=== PATIENT | female | born 1975 | race Caucasian/White ===

== ENCOUNTER → 2020-10-09 02:02 | Outpatient (CLI) | payer OTHER, SELFPAY ==
[2020-10-10 14:52] LABS: SARS-CoV-2 RNA PCR Negative
== END ==
PROVIDERS: PCP Family Medicine; Visit Provider Obstetrics & Gynecology Gynecologic Oncology
DX: Z01.812 Encounter for preprocedural laboratory examination (principal); Z20.822 Contact with and (suspected) exposure to COVID-19
CPT/HCPCS: C9803; U0003; U0005

== ENCOUNTER 2020-10-09 08:00 | Outpatient (CLI) | payer OTHER, SELFPAY ==
[2020-10-09 08:50] LABS: Hematocrit 45.2 % (37.0-47.0); Hemoglobin 14.5 g/dL (12.0-15.0); Mean Corpuscular HGB Conc 32.1 g/dl (32-36); Mean Corpuscular Hemoglobin 28.9 pg (26-34); Mean Corpuscular Volume 90.2 fl (80-100); Mean Platelet Volume 9.8 fl (7.4-10.4); Platelet Count Result 241 k/mm3 (150-375); Red Blood Count 5.01 M/mm3 (4.2-5.4); Red Cell Distribution Width 12.5 % (11.5-14.5); White Blood Count 8.5 K/mm3 (4.5-10.0)
== END 2020-10-09 08:01 | disposition home or self-care (01) ==
PROVIDERS: PCP Family Medicine; Visit Provider Obstetrics & Gynecology Gynecologic Oncology
DX: N83.209 Unspecified ovarian cyst, unspecified side (principal); Z01.818 Encounter for other preprocedural examination
CPT/HCPCS: 36415; 85027; 86850; 86900; 86901

== ENCOUNTER 2020-10-12 02:51 | Day surgery (SDC) | payer OTHER, SELFPAY ==
[2020-10-05 12:08] VITALS: BMI 42.0
[2020-10-12] VITALS (9 sets, daily range): BP systolic 98–148; BP diastolic 51–98; PULSE 64–92; RESP 15–20; TEMP 36.7; O2SAT 95–100
--- NOTE | 2020-10-12 07:13 | WPDANESEPPF ---
Anes - Initial Pre Proc Eval Procedure: Operation Date: 10/12/20 08:30 Proposed Procedures p Diagnostic Laparoscopy With Right Salpingectomy, Left Salpingo Oophorectomy - Glory Agustin DO Date/Time: 10/12/20 07:13 Surgeon: Glory Agustin DO Pre Op Diagnosis: Left ovarian cyst Patient Data Age: 45 Gender: F Height: 1.75 m Weight: 129.3 kg Allergies Allergy/AdvReac Type Severity Reaction Status Date / Time Penicillins Allergy Severe Fever Verified 10/05/20 12:04 Home Medications Medication Instructions Recorded Confirmed Type famotidine 20 mg PO BID 10/05/20 10/05/20 History levonorgestrel [Mirena] 1 device INTRAUTERINE ONCE 10/05/20 10/05/20 History levothyroxine 125 mcg PO DAILY 10/05/20 10/05/20 History ondansetron HCl 4 mg PO Q6H PRN 10/05/20 10/05/20 History sertraline 50 mg PO DAILY 10/05/20 10/05/20 History Patient hx anesthesia problems: post op nausea/vomiting Family hx anesthesia problems: none [facility] Past Medical History Medical History (Updated 10/11/20 @ 12:35 by Dav Hutchison DO) Anxiety Hypothyroidism IBS (irritable bowel syndrome) Migraine PONV (postoperative nausea and vomiting) Surgical History Surgical History (Updated 10/11/20 @ 12:35 by Dav Hutchison DO) History of History of laparoscopic cholecystectomy Social History Social History Years smoked: 3 Smoking status: Former smoker Smoking end date: 06/04/07 Alcohol intake: current Alcohol use details: 2/MONTH Substance use: never Substance use type: does not use Living arrangements: with family Spiritual care concerns: No Anes - Eval Final PreProcedure Day of Procedure 10/12/20 07:13 Patient weight: morbidly obese Heart: regular rate and rhythm Lungs: clear to auscultation and normal air movement Airway: Mallampati scale class III Neurological: alert and oriented Last oral intake: >/= 8 hours ASA classification: III Emergent: no Anesthetic plan: proceed Anesthesia type and monitoring: general ETT and standard monitoring Informed Consent: The patient's anesthetic plan and its attendant risks and benefits were discussed with the patient/family/POA. Questions were solicited and answers provided to the satisfaction of the patient/family/POA.
[2020-10-12] MEDS: ACETAMINOPHEN 500 MG TABLET 1000 MG PO (07:21)
[2020-10-12] MEDS: GABAPENTIN 300 MG CAPSULE PO (07:21)
[2020-10-12] MEDS: KETOROLAC 15 MG/ML VIAL (*BKC) IV PUSH (07:26)
[2020-10-12] MEDS: SCOPOLAMINE 1.5 MG PATCH TRANSDERM (07:28)
[2020-10-12] MEDS: LACTATED RINGERS 1,000 ML 30 ML IV CONT ×2 (07:45→09:51)
--- NOTE | 2020-10-12 08:04 | WPDHPUPDATE1 ---
History and Physical Update Update Date/Time: 10/12/20 08:04 History and Physical has been reviewed, including an updated exam of the patient. There are NO changes in the patient's condition. Risks, benefits, and alternatives have been discussed and questions answered. Patient agrees to proceed with procedure.
[2020-10-12] MEDS: BUPIVACAINE/EPINEPHRINE 0.25% 50 ML VIAL INFILTRATE (09:36)
[2020-10-12] MEDS: KETOROLAC 30 MG/ML VIAL (*BKC) IV PUSH (09:38)
--- NOTE | 2020-10-12 09:51 | PM.PROC ---
Procedure Note - Detailed Date of procedure: 10/12/20 Pre-op diagnosis: Left ovarian cyst Post-op diagnosis: same Procedure performed: Diagnostic laparoscopy, right salpingectomy, left salpingo-oophorectomy, peritoneal biopsy, pelvic washings Description of procedure: The patient was taken to the operating room she was placed under general anesthesia. She was prepped and draped in the normal sterile fashion in the dorsal lithotomy position. No preoperative antibiotics were indicated. A time-out was performed. A speculum was placed in the vagina and the cervix was visualized. The anterior lip of the cervix was grasped with a single-tooth tenaculum and cervix was sounded to 7 cm. The cervix was sequentially dilated up to accommodate a Kroner uterine manipulator. The manipulator was placed, the tenaculum was removed as was the speculum. The legs were lowered and gloves were changed. Attention was then turned to the abdomen. The skin underneath the umbilicus was grasped with penetrating towel clamps. The skin was elevated and injected with local. Incision was made with scalpel and a Veress needle was introduced, once a positive saline water drop test was performed CO2 insufflation was started and the abdomen was insufflated to 15 mmHg. The Veress needle was replaced with a 5 mm Optiview trocar. Survey of the abdomen revealed no evidence of bowel or vascular injury upon entry. The bowel was grossly normal. The patient was placed in steep Trendelenburg position and the pelvic organs were surveyed the uterus and tubes were unremarkable, as was the right ovary. The left ovary was dilated with a large cystic structure. There is a peritoneal implant on the right uterosacral ligament suspicious for endometriosis. Additional 5 mm ports were injected incised an additional Optiview trocars were introduced in the right and left lower quadrants. Uterus was then elevated and the right tube was dissected off using LigaSure. This was handed off through the dermatology physician assistant port. The uterus was then deviated to the right, a defect was made in the left peritoneal sidewall. The IP was isolated and the ureter was noted to be well out of the dissection field. The IP was then cauterized and transected using the LigaSure. The dissection was then carried up distal to the tube where the tube and ovary were then cauterized and transected off of the uterus. The left lower quadrant trocar was replaced with an 8 mm trocar, an 8 mm anchor bag was introduced and the specimen placed inside. The specimen was then removed intact without spillage into the bag and removed from the abdomen. 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 Washings were collected. The IP was noted to be hemostatic. And final picture of the abdomen was taken. The trocars removed and the CO2 gas was allowed to escape. Additional local was injected into the trocar sites. The incisions were closed with 4 Monocryl in interrupted subcuticular fashion and the incisions were covered with Steri-Strips. All instrument and sponge counts were correct at the conclusion of the procedure and the patient was taken to the recovery room in stable condition. Implants: None Anesthesia: ROSALIE Surgeon: Glory Agustin DO Laborer High Density Press: Bushra Estimated blood loss (mL): 10 IV fluids (mL): 900 Urine output (mL): 50 Drains: No Packing: No Pathology: yes (Right tube, Left tube and ovary, pelvic washings, posterior cul-de-sac biopsy) Complications: None Condition: stable Disposition: PACU Findings: Normal appearing vulva and vaginal canal, normal appearing cervix. IUD strings not visible. Intraabdominally, the bowel appeared normal. The uterus, both tubes and the right ovary were normal. The left ovary contained a large cystic structure. There was a small cigarette burn type lesion on the right cul-de-sac that was likely endometriosis. The left ovarian cys
== END 2020-10-12 11:50 | disposition home or self-care (01) ==
PROVIDERS: PCP Family Medicine; Visit Provider Obstetrics & Gynecology Gynecologic Oncology
PROC: (CPT 49320; principal; 2020-10-12 08:30)
DX: D27.1 Benign neoplasm of left ovary (principal); K66.8 Other specified disorders of peritoneum; E03.9 Hypothyroidism, unspecified; K58.9 Irritable bowel syndrome, unspecified; F41.9 Anxiety disorder, unspecified; Z87.891 Personal history of nicotine dependence; E66.01 Morbid (severe) obesity due to excess calories; Z68.41 Body mass index [BMI] 40.0-44.9, adult
CPT/HCPCS: 58661; 36415; 85027; 86850; 86900; 86901; 88104; 88108; 88302; 88305; 88307; A9270; C9803; J0330; J1100; J1885; J2250; J2405; J2704; J2710; J3010; J7030; J7120; Q9968; U0003; U0005